=== PATIENT | male | born 1980 | race Caucasian/White ===

== ENCOUNTER 2018-01-06 15:18 | Emergency (ER) | payer BC, OTHER ==
--- NOTE | 2018-01-06 16:03 | CR ---
Clinical history: 37-year-old male injured left ankle Interpretation: 3 views left ankle unremarkable. No sign of pathologic skeletal lesion, appreciable arthritic degenerative change, left ankle fracture or disruption of the tibiotalar mortise joint symmetry. Minimal soft tissue swelling. No foreign bod ies.
--- NOTE | 2018-01-07 09:36 | EDM.PDOC ---
Scribed by Penny Parry 01/07/18 0936 for Ramírez Zendejas MD ED HPI GENERAL MEDICAL PROBLEM - General Chief Complaint: Lower Extremity Injury/Pain Stated Complaint: L ANKLE/LEG INJURY 01/06. [phone] Time Seen by Provider: 01/06/18 16:00 Source of Information: Reports: Patient, RN, RN Notes Reviewed History Limitations: Reports: No Limitations - History of Present Illness INITIAL COMMENTS - FREE TEXT/NARRATIVE: C/O left ankle pain/injury sustained this morning when pt slipped on the ice and had hyper-plantar flexion and inversion of the left ankle. Denies any other injury. Pt has been able to bear wt some since the injury, but with pain. Onset: Today, Sudden Duration: Constant Location: Reports: Lower Extremity, Left Quality: Reports: Ache Severity: Moderate Improves with: Reports: Immobilization Worsens with: Reports: Movement (and wt bearing) Associated Symptoms: Reports: No Other Symptoms Left Ankle Pain Score (Numeric/FACES): 8 Past Medical History - Past Health History Medical/Surgical History: Denies Medical/Surgical History Social & Family History - Family History Family Medical History: Noncontributory - Living Situation & Occupation Occupation: Employed Review of Systems - Review of Systems Review Of Systems: ROS reveals no pertinent complaints other than HPI. ED EXAM, GENERAL - Physical Exam Exam: See Below Exam Limited By: No Limitations General Appearance: Alert, WD/WN, No Apparent Distress Throat/Mouth: Normal Voice Head: Atraumatic, Normocephalic Neck: Normal Inspection Respiratory/Chest: No Respiratory Distress Peripheral Pulses: 2+: Posterior Tibial (L), 3+: Dorsalis Pedis (L) Extremities: Normal Capillary Refill, Joint Swelling (mild swelling of anterior/ lateral left ankle with no visible bruising, erythema, or deformity. Full but painful ROM. ) Neurological: Alert, Oriented, No Motor/Sensory Deficits Psychiatric: Normal Affect, Normal Mood Skin Exam: Warm, Dry, Intact, Normal Color, No Rash Course - Vital Signs Last Recorded V/S: Last Vital Signs Temp 36.9 C 01/06/18 16:00 Pulse 61 01/06/18 16:00 Resp 16 01/06/18 16:00 BP 125/84 01/06/18 16:00 Pulse Ox 98 01/06/18 16:00 - Orders/Labs/Meds Orders: Active Orders 24 hr Category Date Time Status Splinting [RC] ASDIRECTED Care 01/06/18 18:13 Active - Radiology Interpretation Free Text/Narrative:: Left ankle: No sign of fracture or disruption of the tibiotalar mortise joint symmetry. See rad report. Departure - Departure Time of Disposition: 18:11 Disposition: Home, Self-Care 01 Condition: Good Clinical Impression: High ankle sprain of left lower extremity Qualifiers: Encounter type: initial encounter Qualified Code(s): S93.432A - Sprain of tibiofibular ligament of left ankle, initial encounter - Discharge Information Instructions: Ankle Sprain, [id number] Referrals: Dorian Pena MD [Primary Care Provider] - Forms: ED Department Discharge Additional Instructions: Rest, ice and elevate left leg. Over the counter Ibuprofen (Advil/Motrin) 200mg: Take 3 tablets by mouth every 6 hours as needed for pain. Do not exceed 2400mg (12 tablets) in 24 hours. Take with food. Light activity as tolerated. Follow up in the clinic if not improving in 10 to 14 days. - My Orders Last 24 Hours: My Active Orders 01/06/18 18:13 Splinting [RC] ASDIRECTED - Assessment/Plan Last 24 Hours: My Active Orders 01/06/18 18:13 Splinting [RC] ASDIRECTED I have read and agree with the documentation that has been completed regarding this visit. By signing this record, I attest that the documentation was completed in my physical presence and is an accurate record of the encounter.
== END 2018-01-06 18:26 | disposition home or self-care (01) ==
LOC: DL.ED 15:18
DX: S93.432A Sprain of tibiofibular ligament of left ankle, initial encounter (principal); W00.9XXA Unspecified fall due to ice and snow, initial encounter
CPT/HCPCS: 73610-LT; 99283